=== PATIENT | female | born 1960 | race Caucasian/White ===

== ENCOUNTER 2020-04-14 16:06 | Emergency (ER) | payer BC, SELFPAY ==
[2020-04-14 16:19] VITALS: BP 133/63; PULSE 61; RESP 18; TEMP 36.2; O2SAT 100
[2020-04-14] MEDS: TETANUS,DIPHTHERIA,AC PERTUSSIS ADULT (0.5 ML) BOOSTRIX IM (18:37)
[2020-04-14] MEDS: HYDROcodone/acetaminophen (*CRX) 5-325 MG TABLET 1 TAB PO (19:25)
--- NOTE | 2020-04-14 19:48 | ED.GENADULT ---
HPI - General Adult General Chief complaint: Wound/Laceration Stated complaint: laceration thumb Time Seen by Provider: 04/14/20 18:11 Source: patient Mode of arrival: ambulatory Limitations: no limitations History of Present Illness HPI narrative: Patient presents with chief complaint of a vaginal laceration that she sustained while using a knife to cut potatoes approximately 1 hour prior to arrival. Patient completely oppose the tip of her right and lacerated the left side of her right index finger. Patient reports that there was some bleeding from the area so she cleansed them and wrapped them into house and presented to urgent care who then directed her to the emergency department. Patient states that she does not believe she is up-to-date on her tetanus. Patient still has full range of motion and sensation to the areas. Patient did not injure the nailbeds. Patient denies any other injuries. Related Data Allergies Allergy/AdvReac Type Severity Reaction Status Date / Time Cephalosporins Allergy Intermediate BAD RASH Unverified 04/14/20 18:14 Penicillins Allergy Intermediate Rash Verified 04/14/20 18:34 Review of Systems Review of Systems: Narrative: CONSTITUTIONAL: Denies fever, chills, or sweats. EYES: Denies visual changes, redness, or discharge. ENT: Denies rhinorrhea, congestion, sore throat, or otalgia. CARDIOVASCULAR: Denies chest pain, palpitations, or edema. RESPIRATORY: Denies cough or dyspnea. GASTROINTESTINAL: Denies abdominal pain, nausea, vomiting, or diarrhea. GENITOURINARY: Denies dysuria or hematuria. SKIN: Reports avulsion type laceration denies rash or itching. MUSCULOSKELETAL: Denies back pain, joint pain, or myalgia. NEUROLOGIC: Denies headache, numbness, dizziness, or weakness. PSYCHIATRIC: Denies anxiety or depression. Exam Narrative: Exam Narrative: GENERAL: Well-appearing, well-nourished, and in no acute distress. HEAD: Normocephalic, atraumatic. EYES: PERRLA and EOMI. NECK: Supple. No adenopathy or masses. No carotid bruits or JVD CHEST: Clear to auscultation. No respiratory distress. No wheezes rales or rhonchi HEART: Regular rate and rhythm. No murmur heard. Normal peripheral pulses. EXTREMITIES: Normal range of motion. No edema. SKIN: 1 cm Avulsion laceration across the tip of the right finger not actively bleeding at this time. No foreign bodies noted. There is not laceration to the nailbed. There is approximately 2-1/2 cm avulsion laceration to the left side of the right index finger without active bleeding. Nailbed intact. There warm, dry, no rash. NEURO: No focal deficits. Alert and oriented x3. PSYCH: Normal mood and affect. Course Vital Signs Vital signs: Vital Signs Temperature 97.2 F L 04/14/20 16:19 Pulse Rate 61 04/14/20 16:19 Respiratory Rate 18 04/14/20 16:19 Blood Pressure 133/63 04/14/20 16:19 Pulse Oximetry 100 04/14/20 16:19 Temperature 97.2 F L 04/14/20 16:19 Pulse Rate 61 04/14/20 16:19 Respiratory Rate 18 04/14/20 16:19 Blood Pressure 133/63 04/14/20 16:19 Pulse Oximetry 100 04/14/20 16:19 Medical Decision Making MDM Narrative Medical decision making narrative: Since the lacerations were avulsion type there are not present skin for suturing. Wounds cleansed with wound cleanser and saline solution. Surgicel was applied to the avulsions to further encouraged non rebleeding. Dermabond applied. Wounds were dressed with patient given instructions to leave dressings in place for 24 hours and to wash areas of antibacterial soap and apply antibacterial ointment and allow the cyst to naturally disintegrate over time. There is no bony tenderness underlying the injuries. Patient has full range of motion. Differential Diagnosis Differential Diagnosis: Laceration, avulsion, fracture Vital Signs Vital Signs: Vital Signs Temperature 97.2 F L 04/14/20 16:19 Pulse Rate 61 04/14/20 16:19 Respiratory Rate 18 04/14/20 16:19 Blood Pressure 133/63
== END 2020-04-14 19:53 | disposition home or self-care (01) ==
PROVIDERS: Emergency Provider Emergency Medicine; PCP Internal Medicine
DX: S61.210A Laceration without foreign body of right index finger without damage to nail, initial encounter (principal); W26.0XXA Contact with knife, initial encounter; Z23 Encounter for immunization
CPT/HCPCS: 90471; 90715; 99283; A9270

== ENCOUNTER 2021-12-10 00:30 | Emergency (ER) | payer BC, SELFPAY ==
--- NOTE | ~2021-12-10 | CT_ITS ---
EXAMINATION: CT abdomen pelvis wo con DATE: 12/10/2021 05:01 INDICATION: Left abdominal pain TECHNIQUE: Computed tomography (CT) of the abdomen and pelvis was performed without intravenous contr ast. Automated exposure control and iterative reconstruction technique were employed. Exam dose: 256 .68 mGy-cm total exam DLP. COMPARISON: None. FINDINGS: The lung bases are clear of infiltrate or consolidation. Normal heart size. No pericardial or pleural effusion. The liver, gallbladder, bile ducts, spleen, pancreas, pancreatic duct, and adrenal glands are unremar kable. There is obstructing 3 mm calculus in the mid left ureter with mild to moderate left proximal hydrour eteronephrosis as result. Approximately 2 mm nonobstructing left kidney. 3 mm and 3.5 mm nonobstructi ng right renal calculi. Normal caliber of the abdominal aorta. No intraperitoneal or retroperitoneal or pelvic mass lesion or adenopathy or ascites. The uterus, adnexal areas and urinary bladder are unremarkable. Normal appendix. There is a prominent amount fecal material in the colon but no bowel obstruction or intraperitoneal free air. Small fat-containing umbilical hernia. No suspicious osteolytic or osteoblastic lesions. IMPRESSION: 3 mm proximal left ureteral calculus with mild to moderate proximal left hydroureteronep hrosis Bilateral nonobstructive nephrolithiasis Normal appendix Reviewed, dictated and finalized at [facility]. Reviewed, dictated and finalized at location [facility]. IMPRESSION: 3 mm proximal left ureteral calculus with mild to moderate proxima l left hydroureteronephrosis Bilateral nonobstructive nephrolithiasis Normal appendix
[2021-12-10 01:43] VITALS: BP 127/67; PULSE 67; RESP 18; TEMP 36.5; O2SAT 100
[2021-12-10 03:00] VITALS: BP 105/72; PULSE 64; RESP 16; O2SAT 97
[2021-12-10 03:01] LABS: Basophils Percent Auto 0.5 % (0.2-1.2); Eosinophils Percent Auto 0.2 % (0-4.4); Hemoglobin 13.9 g/dL (12.0-15.0); Immature Granulocyte Absolute 0.02 K/mm3 (0.00-0.031); Immature Granulocyte Percent A 0.3 % (0-0.5); Lymphocytes Absolute Auto 0.71 K/mm3 (0.9-3.2); Lymphocytes Percent Auto 11.6 % (18.3-44.2); Mean Corpuscular HGB Conc 33.1 g/dl (32-36); Mean Corpuscular Volume 93.8 fl (80-100); Mean Platelet Volume 9.8 fl (7.4-10.4); Monocytes Absolute Auto 0.2 K/mm3 (0.1-0.6); Monocytes Percent Auto 3.4 % (2.6-8.5); Neutrophils Absolute Auto 5.1 K/mm3 (1.3-6.7); Platelet Count Result 263 k/mm3 (150-375); Red Blood Count 4.48 M/mm3 (4.2-5.4); White Blood Count 6.1 K/mm3 (4.5-10.0)
[2021-12-10 03:11] LABS: Alanine Aminotransferase 25 U/L (6-35); Albumin Level 4.3 g/dL (3.5-5.1); Alkaline Phosphatase 101 U/L (38-126); Anion Gap 8 mmol/L (8-16); Aspartate Amino Transferase 31 U/L (14-36); Bilirubin,Total 0.5 mg/dL (0.2-1.3); Blood Urea Nitrogen 28 mg/dL (7-17); Calcium 9.1 mg/dL (8.4-10.2); Carbon Dioxide 29 mmol/L (22-30); Chloride 102 mmol/L (98-107); Estimated CRCL calculation 61 ml/min; Estimated Glomerular Filt Rate > 60; Glucose 149 mg/dL (65-110); Lipase 170 U/L (23-300); Potassium 4.4 mmol/L (3.4-5.0); Sodium 139 mmol/L (137-145)
[2021-12-10 03:13] LABS: Appearance Urine Clear (Clear); Bilirubin Urine Negative (Negative); Blood Urine 3+ (Negative); Color Urine Yellow (Yellow); Glucose Urine UA Negative (Negative); Ketones Urine Negative (Negative); Leukocyte Esterase Ur 2+ LEU/UL (Negative); Nitrate Urine Negative (Negative); Protein Urine Negative (Negative); Specific Grav Ur 1.025 (1.001-1.035); Urobilinogen Urine 0.2 mg/dL (<2.0)
[2021-12-10 03:18] LABS: Mucus Urine Rare /lpf; RBC Urine >75 /hpf (0-2); Squamous Epithelial Cell Urine Rare /hpf (Few); Transitional Epi Cells Urine Rare /hpf (None Seen); WBC Urine 16-20 /hpf
[2021-12-10 03:24] LABS: Add Urine Microscopic? YES
[2021-12-10 06:00] VITALS: BP 104/70; PULSE 60; RESP 16; O2SAT 96
--- NOTE | 2021-12-10 07:19 | ED.GENADULT ---
HPI - General Adult General Chief complaint: Abdominal Pain Stated complaint: LLQ pain x5 hrs Time Seen by Provider: 12/10/21 02:31 History of Present Illness HPI narrative: This is a 7-year-old female presenting ED with left-sided abdominal pain. Said the pain started 7:00 p.m. she is watching TV. It is a sharp nonradiating pain that was severe when it started but then has decreasing nothing. It is constant sudden onset. She has never experienced pain like this for the nose aspirating relieving factors. It was associated with some nausea but no vomiting. No diarrhea. No fever chills or urinary symptoms. Patient has no history of kidney stones. Last bowel movement earlier today and was normal. Related Data Home Medications Medication Instructions Recorded Confirmed atorvastatin 80 mg tablet mg 12/10/21 Allergies Allergy/AdvReac Type Severity Reaction Status Date / Time Cephalosporins Allergy Intermediate BAD RASH Verified 12/10/21 01:47 Penicillins Allergy Intermediate Rash Verified 12/10/21 01:47 Review of Systems Review of Systems: CONSTITUTIONAL: Denies night sweats. EYES: No eye pain ENT: Denies rhinorrhea CARDIOVASCULAR: Denies palpitations RESPIRATORY: Denies hemoptysis GASTROINTESTINAL: Denies hematemesis GENITOURINARY: Denies hematuria. SKIN: Denies rash MUSCULOSKELETAL: Denies myalgia. NEUROLOGIC: Denies weakness. PSYCHIATRIC: Denies delusions PMFSH Past Medical History Medical History (Updated 12/10/21 @ 07:26 by Danny Gale MD) Hyperlipidemia Surgical History Surgical History (Updated 12/10/21 @ 07:21 by Danny Gale MD) H/O rotator cuff surgery Social History Social History (Updated 12/10/21 @ 07:21 by Danny Gale MD) Social History: Denies alcohol tobacco or drug use. Exam Narrative: APPEARANCE: No apparent distress. Head atraumatic. EYES: PERRLA/EOMI, NOSE: Normal no drainage NECK: Supple, Trachea midline RESPIRATORY: CTAB, No increased work of breathing. CARDIOVASCULAR: S1S2 appreciated ABDOMINAL: Soft, nontender, nondistended, No CVA tenderness MUSCULOSKELETAl: No obvious deformities NEURO: Alert. Moving 4/4 extremities SKIN:: Warm, dry. Normal color PSYCHIATRIC: Normal affect Course Vital Signs Vital signs: Vital Signs Temperature 97.7 F 12/10/21 01:43 Pulse Rate 67 12/10/21 01:43 Respiratory Rate 18 12/10/21 01:43 Blood Pressure 127/67 12/10/21 01:43 Pulse Oximetry 100 12/10/21 01:43 Oxygen Delivery Room Air 12/10/21 01:43 Temperature 97.7 F 12/10/21 01:43 Pulse Rate 60 12/10/21 06:00 Respiratory Rate 16 12/10/21 06:00 Blood Pressure 104/70 12/10/21 06:00 Pulse Oximetry 96 12/10/21 06:00 Oxygen Delivery Room Air 12/10/21 01:43 Medical Decision Making MDM Narrative Medical decision making narrative: patient presented with abdominal pain that resolved by time she gets the emergency department. Abdominal lab work and urinalysis have been ordered. Urinalysis was significant for 75 red blood cells, greater than 15 white blood cells. Negative nitrites and positive leuk esterase. A CT of the abdomen pelvis was ordered which revealed a 3 mm kidney stone. The patient's pain is well controlled at this time. She does not have any urinary symptoms or elevated white blood cell count. I believe she is a candidate for outpatient therapy. She will be started on ciprofloxacin 500 mg b.i.d. x7 days. She will be given Motrin Tylenol for pain control and [place] for breakthrough pain. She has been instructed follow-up with urology in 1 week. Vital Signs Vital Signs: Vital Signs Temperature 97.7 F 12/10/21 01:43 Pulse Rate 67 12/10/21 01:43 Respiratory Rate 18 12/10/21 01:43 Blood Pressure 127/67 12/10/21 01:43 Pulse Oximetry 100 12/10/21 01:43 Oxygen Delivery Room Air 12/10/21 01:43 Temperature 97.7 F 12/10/21 01:43 Pulse Rate 60 12/10/21 06:00 Respiratory
[2021-12-10] MEDS: CIPROFLOXACIN 500 MG TAB PO (07:26)
[2021-12-10] MEDS: KETOROLAC 15 MG/ML VIAL (*BKC) IV PUSH (07:26)
[2021-12-10 07:31] VITALS: BP 122/67; PULSE 64; RESP 18; O2SAT 100
== END 2021-12-10 08:07 | disposition home or self-care (01) ==
PROVIDERS: Emergency Provider Emergency Medicine
DX: N13.2 Hydronephrosis with renal and ureteral calculous obstruction (principal); N39.0 Urinary tract infection, site not specified; E78.5 Hyperlipidemia, unspecified
CPT/HCPCS: 36415; 74176; 80053; 81001; 83690; 85025; 87086; 87088; 96374; 99284; A9270; J1885

== ENCOUNTER 2021-12-20 10:13 | Outpatient (CLI) | payer BC, SELFPAY ==
--- NOTE | ~2021-12-20 | XR_ITS ---
EXAMINATION: XR abdomen/kub 1V INDICATION: Left ureteral stone TECHNIQUE: Supine views of the abdomen were obtained on 2 radiographs. COMPARISON: CT, 12/10/2021 FINDINGS: There are multiple phleboliths of the pelvis. The previously described proximal left ureter al stone is not definitely identified. A large volume of colonic stool is present. 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 The visualized lung bases are clear. IMPRESSION: 1. No definite urolithiasis identified. 2. Constipation. Reviewed, dictated and finalized at location [facility].
== END 2021-12-20 10:14 | disposition home or self-care (01) ==
PROVIDERS: Visit Provider Nurse Practitioner Family
DX: N20.1 Calculus of ureter (principal); K59.00 Constipation, unspecified
CPT/HCPCS: 74018

== ENCOUNTER → 2022-01-03 07:39 | Outpatient (CLI) | payer BC, SELFPAY ==
--- NOTE | ~2022-01-03 | US_ITS ---
EXAMINATION: US retroperitoneal comp DATE: 01/03/2022 08:12 INDICATION: Left ureteral stone TECHNIQUE: Multiple grayscale ultrasound images of the kidneys and bladder were obtained. COMPARISON: CT dated 10/10/2021 FINDINGS: The right kidney measures 10.7 x 4.8 x 5.8 cm. The left kidney measures 11.6 x 5.9 x 5.0 cm. There ar e multiple tiny hyperechoic foci of both kidneys without definitive posterior acoustic shadowing equi vocal for tiny renal stones. Mild right hydronephrosis. There is mild left hydronephrosis. The bladde r is normal. IMPRESSION: 1. A few tiny echogenic foci in both kidneys without posterior acoustic shadowing equivocal for tiny renal stones. 2. Mild right hydronephrosis. Reviewed, dictated and finalized at location A. IMPRESSION: 1. A few tiny echogenic foci in both kidneys without posterior acoustic shadow ing equivocal for tiny renal stones. 2. Mild right hydronephrosis.
== END ==
PROVIDERS: Visit Provider Nurse Practitioner Family
DX: N20.1 Calculus of ureter (principal)
CPT/HCPCS: 76770

== ENCOUNTER 2024-02-19 08:51 | Outpatient (CLI) | payer BC, SELFPAY ==
--- NOTE | ~2024-02-19 | XR_ITS ---
XR abdomen/kub 1V 02/19/2024 09:15 Indication: Kidney stone follow-up Procedure: KUB Comparison: 12/20/2021 Findings: There is a large amount of retained fecal material in the colon which limits evaluation for renal stones. There is a stone in the upper pole of the right kidney. There are pelvic phleboliths w hich are not significantly changed from prior study. Nonobstructive bowel gas pattern. Moderate lumba r spondylosis. Impression: 1: Right nephrolithiasis. Reviewed, dictated and finalized at location B. Impression: 1: Right nephrolithiasis.
== END 2024-02-19 08:52 | disposition home or self-care (01) ==
LOC: ANHIMG 08:58
PROVIDERS: Visit Provider Nurse Practitioner Family
DX: N20.0 Calculus of kidney (principal)
CPT/HCPCS: 74018

== ENCOUNTER 2024-03-17 13:19 | Outpatient (CLI) | payer BC, SELFPAY ==
[2024-03-17 14:16] LABS: INR 0.9; Partial Thromboplastin Time 22.4 Seconds (22.3-36.8); Prothrombin Time 12.9 Seconds (11.1-14.7)
== END 2024-03-17 13:20 | disposition home or self-care (01) ==
PROVIDERS: Visit Provider Urology
DX: N23 Unspecified renal colic (principal); Z01.818 Encounter for other preprocedural examination
CPT/HCPCS: 36415; 85610; 85730; 87086

== ENCOUNTER 2024-03-21 06:06 | Day surgery (SDC) | payer BC, SELFPAY ==
[2024-03-17 10:58] VITALS: BMI 24.3
--- NOTE | 2024-03-17 10:59 | PC.NURSE ---
Report to the Outpatient Waiting Room, entrance under the green pavilion located off [facility], at time _0900_ on date _[id number]_. Planned Procedure Time: _1100_.? Time changes happen often and if your time is changed the preop area will call you the afternoon before. - You and your visitor will be asked to self-screen and do not enter if you have any COVID symptoms. Please call surgeon if you need to reschedule. - A mask is optional within the hospital at this time. Patients may have clear liquids (water, carbonated beverages, clear teas, apple juice) until 3 hours prior to surgery with a maximum of 20 ounces. - No food from midnight until time of surgery and no smoking Take only the following medications with a SIP of water on the morning of surgery: ___None DO NOT STOP ANY OF YOUR OTHER PRESCRIPTION MEDICATIONS PRIOR TO SURGERY EXCEPT THE FOLLOWING Medications to discontinue per physician ____Multivitamin__ Date to take last nnsb___[id number] Please no make-up, nail bengali, hairspray, perfume, deodorant, or body powder the day of surgery.? No jewelry (including any body piercings) or valuables the day of surgery, leave them at home.? Please take a shower or bath the night before, or the morning of, surgery with an antibacterial soap.? Wear comfortable, loose fitting clothing.? - Jewelry must be removed prior to entering the operating room.? Rings and piercings that are not removed may be cut off. - The hospital will not accept responsibility for valuables.? - Please leave all valuables, including medications, at home the day of surgery. If you are going home after surgery, a licensed pizza driver must drive you home.? - NO public transportation without another adult if you receive anesthesia. - We recommend that an adult stay with you for 24 hours following discharge. - We also recommend that you do not drive, make important decision, drink alcoholic beverages, or take any drugs that were not prescribed by your health care provider for at least 24 hours after your discharge time. Follow any additional instructions given to you from your surgeon. Telephone instructions given to __Keyonna__and asked if any additional questions and then verbalized understanding. Patient advised to call surgeon office or pre surgery nurse liaison [phone] if any additional questions.
--- NOTE | ~2024-03-21 | XR_ITS ---
EXAMINATION: XR abdomen/kub 1V DATE: 03/21/2024 09:12 INDICATION: Kidney stone. TECHNIQUE: A supine view of the abdomen on 2 radiographs was obtained. COMPARISON: CT abdomen and pelvis 12/10/2021, abdomen radiographs 02/19/2024 FINDINGS: There are no dilated loops of bowel. Calcifications in the pelvis are likely phleboliths. T he kidneys are obscured by bowel. There are 4 mm and 3 mm stones in right kidney. IMPRESSION: 1. Right kidney stones. Reviewed, dictated and finalized at location A. MANAGER IMPRESSION: 1. Right kidney stones.
--- NOTE | 2024-03-21 06:09 | WPDHPUPDATE1 ---
History and Physical Update Update Date/Time: 03/21/24 06:09 History and Physical has been reviewed, including an updated exam of the patient. There are NO changes in the patient's condition. Risks, benefits, and alternatives have been discussed and questions answered. Patient agrees to proceed with procedure.
--- NOTE | 2024-03-21 09:24 | P.PNAN_ITS ---
Anes - Initial Pre Proc Eval Procedure: Operation Date: 03/21/24 11:00 Proposed Procedures p Right Extracorporeal Shock Wave Lithotripsy - Eliazar Torres MD s Cystoscopy with Possible Right Stent - Eliazar Torres MD Date/Time: 03/21/24 09:24 Surgeon: Eliazar Torres MD Pre Op Diagnosis: Rt Kidney Stone Patient Data Age: 63 Gender: F Height: 1.68 m Weight: 68.2 kg Allergies Allergy/AdvReac Type Severity Reaction Status Date / Time Cephalosporins Allergy Intermediate BAD RASH Verified 03/21/24 09:17 Penicillins Allergy Intermediate Rash Verified 03/21/24 09:17 Home Medications Medication Instructions Recorded Confirmed Type atorvastatin 80 mg tablet 80 mg PO HS 12/10/21 03/17/24 History multivitamin 1 tablet PO DAILY 03/17/24 03/17/24 History Patient hx anesthesia problems: none Family hx anesthesia problems: none Results Review: All pre-operative results and documents have been reviewed as part of the pre- operative evaluation. PMFSH Past Medical History Medical History Hyperlipidemia Surgical History Surgical History H/O rotator cuff surgery Social History Social History Social History: Denies alcohol tobacco or drug use. Smoking status: Never smoker Living arrangements: with family Spiritual care concerns: No Anes - Eval Final PreProcedure Day of Procedure 03/21/24 09:24 Patient weight: normal Heart: regular rate and rhythm Lungs: clear to auscultation Airway: Mallampati scale class II Neurological: alert and oriented Last oral intake: >/= 8 hours ASA classification: II Emergent: no Anesthetic plan: proceed Anesthesia type and monitoring: general LMA and standard monitoring Results Review: All pre-operative results and documents have been reviewed as part of the pre- operative evaluation. Informed Consent: The patient's anesthetic plan and its attendant risks and benefits were discussed with the patient/family/POA. Questions were solicited and answers provided to the satisfaction of the patient/family/POA.
[2024-03-21] MEDS: LACTATED RINGERS 1,000 ML 30 ML IV CONT (09:30)
--- NOTE | 2024-03-21 09:38 | ECG_ITS ---
Test Date: 2024-03-21 09:51:21 Measurements Intervals Lloyd Rate: 54 P: 61 MA: 142 QRS: -16 QRSD: 90 T: 36 QT: 473 QTc: 449 Interpretive Statements SINUS BRADYCARDIA POSSIBLE LEFT ATRIAL ENLARGEMENT INCOMPLETE RIGHT BUNDLE BRANCH BLOCK DELAYED PRECORDIAL R/S TRANSITION BASELINE ARTIFACT- I, II, III, AVR, AVL, AVF BORDERLINE ECG No previous ECG available for comparison Electronically Signed On 03-21-2024 11:47:32 NETWORKER by Dieudonne Noriega D.O.
[2024-03-21 09:50] VITALS: BP 146/93; PULSE 68; RESP 16; TEMP 36.7; O2SAT 100
[2024-03-21] MEDS: levoFLOXacin 500 MG/D5W 100 ML 500 MG/100 ML BAG 100 MG IVPB (10:20)
--- NOTE | 2024-03-21 10:35 | W.PM.PROC2 ---
Procedure Note - Detailed Date of Procedure 03/21/24 Pre-op Diagnosis Rt Kidney Stone Post-op Diagnosis Same Procedure Performed Right ESWL Surgeon Eliazar Torres MD Anesthesia General Description of Procedure The patient was brought to the operative suite where she was placed in the supine position on the Dornier lithotripsy table. The focal point of the lithotripter was placed at, what appeared to be, 2 small contiguous stones in right upper pole. A total of 2500 shocks were delivered at a power setting of 4. There appeared to be good fragmentation of the stone. The patient tolerated the procedure well and was taken to the recovery room in good condition. Drains No Packing No Pathology None sent
[2024-03-21 11:11] VITALS: BP 122/79; PULSE 90; RESP 18; TEMP 36.2; O2SAT 100
[2024-03-21 11:25] VITALS: BP 125/80; PULSE 76; RESP 13; O2SAT 100
[2024-03-21 11:40] VITALS: BP 123/76; PULSE 75; RESP 19; O2SAT 100
[2024-03-21 11:49] VITALS: BP 128/73; PULSE 70; RESP 18
[2024-03-21 12:15] VITALS: BP 121/75; PULSE 57; RESP 16
== END 2024-03-21 12:33 | disposition home or self-care (01) ==
PROVIDERS: Visit Provider Urology
PROC: (CPT 50590; principal; 2024-03-21 11:00)
DX: N20.0 Calculus of kidney (principal); E78.5 Hyperlipidemia, unspecified; I45.10 Unspecified right bundle-branch block; Z98.890 Other specified postprocedural states; Z80.0 Family history of malignant neoplasm of digestive organs
CPT/HCPCS: 50590; 74018; 93005; J1100; J1956; J2405; J2704; J7120

== ENCOUNTER 2024-04-08 08:07 | Outpatient (CLI) | payer BC, SELFPAY ==
--- NOTE | ~2024-04-08 | XR_ITS ---
EXAMINATION: XR abdomen/kub 1V DATE: 04/08/2024 08:22 INDICATION: Right kidney stone. TECHNIQUE: A supine view of the abdomen on 2 radiographs was obtained. COMPARISON: CT abdomen and pelvis 12/10/2021, abdomen radiographs 03/21/2024 FINDINGS: There is a large volume of stool in the colon. There are no dilated loops of bowel. There a re phleboliths in the pelvis. IMPRESSION: 1. No visible urolithiasis. Reviewed, dictated and finalized at location A. GE MANAGEMENT SPECIALIST IMPRESSION: 1. No visible urolithiasis.
== END 2024-04-08 08:08 | disposition home or self-care (01) ==
PROVIDERS: Visit Provider Nurse Practitioner Family
DX: N20.0 Calculus of kidney (principal)
CPT/HCPCS: 74018

== ENCOUNTER 2025-04-13 09:29 | Outpatient (CLI) | payer BC, SELFPAY ==
--- NOTE | ~2025-04-13 | XR_ITS ---
EXAMINATION:KUB: DATE: 04/13/2025 INDICATION: Kidney stone TECHNIQUE: Supine AP view of the abdomen. COMPARISON: Prior study dated 04/08/2024 FINDINGS: Fecal impaction of the colon limits visualization of the outline of the kidneys. No definite calcific densities of the kidneys, to the extent visualized. No evidence of bladder calculi. Numerous phleboliths in the pelvis similar to prior study. IMPRESSION: 1. Limited visualization of kidneys due to fecal impaction. 2. No definite calcific densities in the projection of kidneys and bladder. Multiple stable phleboliths in the pelvis. Reviewed, dictated and finalized at location T. FACTURING PLANT CONTROLLER IMPRESSION: 1. Limited visualization of kidneys due to fecal impaction. 2. No definite calcific densities in the projection of kidneys and bladder. Mul tiple stable phleboliths in the pelvis.
== END 2025-04-13 09:30 | disposition home or self-care (01) ==
PROVIDERS: Visit Provider Urology
DX: N20.0 Calculus of kidney (principal)
CPT/HCPCS: 74018